=== PATIENT | male | born 1935 ===

== ENCOUNTER 2018-05-22 05:32 | Outpatient (CLI) | payer MEDICARE, BC ==
[~2018-05-22] VITALS: Ht 180.3 cm; Wt 76.7 kg
[2018-05-22] MEDS ORDERED: CLON1PAT2 TD (12:24)
[2018-05-22] MEDS ORDERED: HYDR-700 PO (12:24)
[2018-05-22] MEDS ORDERED: FISH1CAP15 PO (12:24)
[2018-05-22] MEDS ORDERED: TRIA16.99 NS (12:24)
[2018-05-22] MEDS ORDERED: OLME1TAB40 PO (12:24)
[2018-05-22] MEDS ORDERED: HYDR-3924 PO (12:24)
[2018-05-22] MEDS ORDERED: CLON0.1T PO (12:24)
[2018-05-22] MEDS ORDERED: MULT-351 PO (12:24)
[2018-05-22] MEDS ORDERED: SPIR25TA5 PO (12:24)
[2018-05-22] MEDS ORDERED: TAMS0.4C98 PO (12:24)
[2018-05-22] MEDS ORDERED: FINA5TAB6 PO (12:24)
[2018-05-22] MEDS ORDERED: PSYL1000 MC (12:24)
[2018-05-22] MEDS ORDERED: VIT1CAPS44 PO (12:24)
[2018-05-22] MEDS ORDERED: GABA-486 PO (12:24)
[2018-05-22] MEDS ORDERED: ASPI-586 PO (12:24)
== END 2018-05-22 12:31 | disposition home or self-care (01) ==
LOC: PREOP 05:32 → EDUNIT# 09:00 → PREOP 12:31
PROVIDERS: ATTEND Specialist
DX: Z01.818 Encounter for other preprocedural examination (principal)